=== PATIENT | female | born 1955 | race Caucasian/White ===

== ENCOUNTER → 2017-02-26 | Outpatient (CLI) | payer BC ==
--- NOTE | 2017-02-27 20:23 | MRI ---
Lumbar spine MRI without contrast Indication: 61-year-old woman with low back pain and radiculopathy. Comparison: Abdomen and pelvis CT dated 10/26/2015. Technique: Multi planar, multi sequence imaging of the lumbar spine was obtained without the use of i ntravenous contrast. Findings: There is slight grade 1 anterolisthesis of L3 on L4 with otherwise normal lumbar spine alignment. Sal tebral body heights are normal and there is no STIR signal abnormality to suggest acute injury. Bone marrow signal is normal. The conus medullaris terminates at the L1 level and the nerve roots of the c auda equina appear normal. Multilevel degenerative changes will be detailed on a level by level basis below: T12-L1: There is a tiny anterior disk osteophyte with minimal facet arthropathy. There is no spinal c anal or neural foraminal stenosis. L1-2: There is a tiny anterior disk osteophyte with minimal facet arthropathy. There is no spinal can al or neural foraminal stenosis. L2-3: There is a small diffuse disc bulge with mild bilateral degenerative facet arthropathy and liga mentum flavum hypertrophy. There is no significant spinal canal stenosis. There is mild left neural f oraminal stenosis. L3-4: There is a diffuse disc bulge with moderate right greater than left degenerative facet arthropa thy and ligamentum flavum hypertrophy. Findings result in mild bilateral neural foraminal stenosis. L4-5: There is a diffuse disc bulge with an asymmetric left neural foraminal superimposed disc protru nahum as well as moderate bilateral facet arthropathy. Findings result in mild spinal canal and severe left lateral recess stenosis. There is also mild right and moderate left neural foraminal stenosis. There is contact of the transiting left L5 nerve root as well as contact of the exiting left L4 nerve root within the neural foramen. At L5-S1: There is a tiny disc bulge with mild facet arthropathy. There is mild right neural foramina l stenosis. The visualized paravertebral soft tissues unremarkable. Impression: Multilevel lumbar spondylosis as detailed above, most prominent at L4-5 where there is a diffuse disc bulge with a superimposed left neural foraminal disc protrusion which appears to contact the transit ing left L5 nerve root and exiting left L4 nerve root. This also results in mild spinal canal and mod erate left neural foraminal stenosis. Reported By:
== END | disposition home or self-care (01) | DRG 552 ==
LOC: RAD 10:29
PROVIDERS: ATTEND Internal Medicine
DX: M54.5 Low back pain (principal); M54.17 Radiculopathy, lumbosacral region; M47.896 Other spondylosis, lumbar region; M51.26 Other intervertebral disc displacement, lumbar region; M48.061 Spinal stenosis, lumbar region without neurogenic claudication
CPT/HCPCS: 72148